=== PATIENT | female | born 1950 | race Two or more races ===

== ENCOUNTER 2021-09-05 19:17 | Emergency (ER) | payer OTHER ==
[~2021-09-05] VITALS: Ht 165.1 cm; Wt 59.0 kg
[2021-09-05] MEDS ORDERED: EC-NAPROSYN375 MG PO (22:26)
[2021-09-05] MEDS ORDERED: ORPHENADRINE C100 MG PO (22:27)
== END 2021-09-05 22:38 | disposition home or self-care (01) ==
LOC: ER 19:17
DX: M62.838 Other muscle spasm (principal); M54.2 Cervicalgia; M54.89 Other dorsalgia